=== PATIENT | female | born 1930 | race Hispanic/Latino ===

== ENCOUNTER 2017-11-18 12:40 | Outpatient (CLI) | payer MEDICARE, OTHER ==
--- NOTE | 2017-11-18 18:42 | XRay Report ---
FINAL REPORT PROCEDURE: XR CHEST ROUTINE 2V TECHNIQUE: PA and lateral chest radiographs were obtained. CPT 56733 HISTORY: Acute bacterial bronchitis. COMPARISON: No prior studies are available for comparison. FINDINGS: Heart: Mild cardiomegaly. Dual-chamber pacer. Mediastinum/Vessels: Aortic tortuosity and calcification. Bilateral hilar prominence. Lungs/Pleural space: Peribronchial thickening. Coarse interstitial opacities. Right lower lobe opacity with small right pleural effusion. Bony thorax: Osteopenia with multilevel disc space narrowing and osteophytes. Other: IMPRESSION: Cardiomegaly. Dual-chamber pacer. Aortic calcification and tortuosity. Bilateral hilar prominence, consider pulmonary hypertension, cannot exclude adenopathy. Peribronchial thickening. Coarse interstitial opacities with right lower lobe opacity and small right pleural effusion. Consider congestive heart failure with atelectasis, cannot exclude bronchitis/pneumonia. There also may be an element of underlying chronic interstitial lung change. Consider attention on followup PA and lateral chest radiograph 2-4 weeks with re-evaluation at this time.
== END 2017-11-18 12:41 | disposition home or self-care (01) ==
LOC: XRAY 12:40
PROVIDERS: ATTEND Internal Medicine
DX: J20.8 Acute bronchitis due to other specified organisms (principal); I51.7 Cardiomegaly; I50.9 Heart failure, unspecified; I27.20 Pulmonary hypertension, unspecified; J90 Pleural effusion, not elsewhere classified; J98.11 Atelectasis; Q25.46 Tortuous aortic arch; I70.0 Atherosclerosis of aorta; M85.88 Other specified disorders of bone density and structure, other site; M25.78 Osteophyte, vertebrae; Z95.0 Presence of cardiac pacemaker
CPT/HCPCS: 71046

== ENCOUNTER 2017-12-20 12:43 | Outpatient (CLI) | payer MEDICARE, OTHER ==
--- NOTE | 2017-12-20 16:48 | XRay Report ---
FINAL REPORT PROCEDURE: XR CHEST ROUTINE 2V TECHNIQUE: AP and lateral chest radiographs were obtained. CPT 88134 HISTORY: ACUTE BACTERIAL BRONCHITIS COMPARISON: No prior studies are available for comparison. FINDINGS: The heart remains diffusely markedly enlarged. Dual-chamber pacemaker remains in place. There is improved aeration compared to the prior study. No focal infiltrates masses or effusions are seen. Lungs are hyperinflated consistent with underlying COPD. Moderate thoracic scoliosis convex the left apex T8 visualized. On the lateral view there is a moderate to marked compression deformity of 1 of the upper lumbar vertebral bodies. I suspect this is old. Correlation with physical exam recommended to exclude acute compression deformity. Bones appear to be diffusely demineralized. IMPRESSION: Cardiomegaly. Hyperinflated lungs consistent with underlying COPD. No acute cardiac or pulmonary process is visualized. Dual-chamber pacemaker remains in place. Compression deformity upper lumbar vertebral body as described. Thoracic scoliosis.
== END 2017-12-20 12:44 | disposition home or self-care (01) ==
LOC: SPVIMAG 12:43
PROVIDERS: ATTEND Internal Medicine
DX: J20.8 Acute bronchitis due to other specified organisms (principal); J98.11 Atelectasis; I51.7 Cardiomegaly; M41.84 Other forms of scoliosis, thoracic region; Z95.0 Presence of cardiac pacemaker
CPT/HCPCS: 71046